=== PATIENT | female | born 1955 | race Caucasian/White ===

== ENCOUNTER 2016-07-13 10:31 | Inpatient (IN) | payer BC ==
[~2016-07-13] VITALS: Ht 160 cm; Wt 67.0 kg
[2016-07-13 10:32] VITALS: BP 142/75; PULSE 92; RESP 20; TEMP 98.9; O2SAT 98
[2016-07-13] MEDS ORDERED: SODIUM CHLOR 0.9% 1000 ML INJ 1,000 ML IV SCH (10:48)
[2016-07-13] MEDS ORDERED: TRAZ100T4 PO (10:50)
--- NOTE | 2016-07-13 10:55 | PD ---
HPI Chief Complaint: GI Complaint Time Seen by Provider: 10:41 Travel History International Travel<30 days: No Contact w/Intl Traveler<30days: No Traveled to known affect area: No History of Present Illness HPI 60-year-old female complains of low abdominal cramping and diarrhea. Patient was admitted to hospital outside the area on June 15 to June 17 for ruptured diverticulitis. Patient was treated with IV antibiotics conservatively without surgery. Patient was readmitted on June 19 to June 21 for persistent vomiting and dehydration. Repeat the CT of the abdomen and pelvis was reported to be normal. Patient was advised to continue with Cipro and Flagyl and antiemetic medication. Patient finished antibiotics on July 01. Patient has been doing well until 4 days ago when she started having mild low abdominal cramping and diarrhea. Patient denies any headache. Patient denies any chest pain or shortness of breath. Patient states the abdominal pain is mild intermittent cramping localized to lower abdomen. Patient denies any pain radiation. Patient states that she had fever a few days ago but not now. Patient denies any dysuria or frequency. Patient denies any vaginal discharge or bleeding. Patient denies any back pain. Patient denies any blood or mucus in the stool. PFSH Past Medical History Gastrointestinal Disorders: Yes (DIVERTICULITIS) Tetanus Vaccination: > 5 Years Influenza Vaccination: Yes ?: Not : 2 Para: 1 Miscarriage: 0 : 1 Past Surgical History Gynecologic Surgery: Yes (FULL) Hysterectomy: Yes (FULL) Social History Alcohol Use: Yes ("A COUPLE OF GLASSES OF WINE DAILY") Tobacco Use: No Substance Use: No Allergies-Medications (Allergen,Severity, Reaction): Coded Allergies: Codeine (Verified Allergy, Severe, 07/13/16) Reported Meds & Prescriptions Reported Meds & Active Scripts Active Reported Trazodone (Trazodone HCl) 100 Mg Tab 100 Mg PO HS Review of Systems General / Constitutional: No: Fever Eyes: No: Visual changes HENT: No: Headaches Cardiovascular: No: Chest Pain or Discomfort Respiratory: No: Shortness of Breath Gastrointestinal: Positive: Diarrhea, Abdominal Pain Genitourinary: No: Dysuria Musculoskeletal: No: Pain Skin: No Rash Neurologic: No: Weakness Psychiatric: No: Depression Endocrine: No: Polydipsia Hematologic/Lymphatic: No: Easy Bruising Physical Exam Narrative GENERAL: Well-nourished, well-developed patient. SKIN: Focused skin assessment warm/dry. HEAD: Normocephalic. EYES: No scleral icterus. No injection or drainage. NECK: Supple, trachea midline. No JVD or lymphadenopathy. CARDIOVASCULAR: Regular rate and rhythm without murmurs, gallops, or rubs. RESPIRATORY: Breath sounds equal bilaterally. No accessory muscle use. GASTROINTESTINAL: Abdomen soft, nondistended. Patient has mild tenderness on palpation lower abdomen. No rebound tenderness. No mass. MUSCULOSKELETAL: No cyanosis, or edema. BACK: Nontender without obvious deformity. No CVA tenderness. Neurologic exam normal. Data Data Last Documented VS Vital Signs Date Time Temp Pulse Resp B/P Pulse Ox O2 Delivery O2 Flow Rate FiO2 07/13/16 10:40 18 07/13/16 10:32 98.9 92 142/75 98 Room Air Orders Complete Blood Count With Diff (07/13/16 10:48) Comprehensive Metabolic Panel (07/13/16 10:48) Lipase (07/13/16 10:48) Prothrombin Time / Inr (Pt) (07/13/16 10:48) Act Partial Throm Time (Ptt) (07/13/16 10:48) Urinalysis - C+S If Indicated (07/13/16 10:48) Ct Abd/Pel W Iv Contrast(Rout) (07/13/16 10:48) Iv Access Insert/Monitor (07/13/16 10:48) Ecg Monitoring (07/13/16 10:48) Oximetry (07/13/16 10:48) Ondansetron Inj (Zofran Inj) (07/13/16 11:00) Sodium Chlor 0.9% 1000 Ml Inj (Ns 1000 M (07/13/16 10:48) Iohexol 350 Inj (Omnipaque 350 Inj) (07/13/16 12:12) Urine Culture (07/13/16 12:05) Labs Laboratory Tests Test 07/13/16 07/13/16 11:05 12:05 White Blood Count 7.6 TH/MM3 Red Blood Count 4.22 MIL/MM3 Hemoglobin 11.9 GM/DL Hematocrit 35.6 % Mean Corpuscular Volume 84.5 FL Mean Corpuscular Hemoglobin 28.2 PG Mean Corpuscular Hemoglobin 33.4 % Concent Red Cell Distribution Width 13.9 % Platelet Count 221 TH/MM3 Mean Platelet Volume 9.7 FL Neutrophils (%) (Auto) 66.9 % Lymphocytes (%) (Auto) 18.5 % Monocytes (%) (Auto) 13.3 % Eosinophils (%) (Auto) 1.1 % Basophils (%) (Auto) 0.2 % Neutrophils # (Auto) 5.1 TH/MM3 Lymphocytes # (Auto) 1.4 TH/MM3 Monocytes # (Auto) 1.0 TH/MM3 Eosinophils # (Auto) 0.1 TH/MM3 Basophils # (Auto) 0.0 TH/MM3 CBC Comment DIFF FINAL Differential Comment Prothrombin Time 10.0 SEC Prothromb Time International 0.9 RATIO Ratio Activated Partial 25.3 SEC Thromboplast Time Sodium Level 140 MEQ/L Potassium Level 3.8 MEQ/L Chloride Level 104 MEQ/L Carbon Dioxide Level 27.1 MEQ/L Anion Gap 9 MEQ/L Blood Urea Nitrogen 8 MG/DL Creatinine 0.63 MG/DL Estimat Glomerular Filtration 97 ML/MIN Rate Random Glucose 82 MG/DL Calcium Level 9.2 MG/DL Total Bilirubin 0.3 MG/DL Aspartate Amino Transf 12 U/L (AST/SGOT) Alanine Aminotransferase 22 U/L (ALT/SGPT) Alkaline Phosphatase 67 U/L Total Protein 7.7 GM/DL Albumin 3.6 GM/DL Lipase 187 U/L Urine Color YELLOW Urine Turbidity HAZY Urine pH 5.5 Urine Specific [place] 1.032 Urine Protein 30 mg/dL Urine Glucose (UA) NEG mg/dL Urine Ketones NEG mg/dL Urine Occult Blood NEG Urine Nitrite NEG Urine Bilirubin NEG Urine Urobilinogen LESS THAN 2.0 MG/DL Urine Leukocyte Esterase MOD Urine RBC 10 /hpf Urine WBC 50 /hpf Urine Squamous Epithelial 2 /hpf Cells Urine Calcium Oxalate Crystals RARE /hpf Urine Mucus MOD /lpf Microscopic Urinalysis Comment CULTURE INDICATED MDM Medical Decision Making Medical Screen Exam Complete: Yes Emergency Medical Condition: Yes Interpretation(s) 12:06 PM. CBC within normal limit. CMP within normal limit. 12:44 PM. Last Impressions Abdomen/Pelvis CT 07/13/16 1048 Signed Impressions: Service Date/Time: Wednesday, July 13, 2016 12:03 - CONCLUSION: 1. Abnormal sigmoid colon characteristic of mild acute diverticulitis in the mid sigmoid colon region. There is an area of extraluminal air and soft tissue extending superiorly from the mid sigmoid colon which represents either a large diverticulum, contained perforation, or possibly developing a fistula. No abscess or free air is present. 2. Innumerable cystic lesions are present throughout the liver with the largest cluster at the dome measuring up to 11 cm. Given the number of hepatic lesions present this presumably represents some variant of polycystic liver disease. Given the appearance of the lesion at the dome consider followup imaging to confirm stability or correlate with prior imaging studies. Jaison Plaza MD Differential Diagnosis Differential diagnosis including gastroenteritis, colitis, C. difficile colitis , viral syndrome. Narrative Course 60-year-old female with low abdominal pain and diarrhea. History of diverticulitis and recently was treated for that. Normal saline solution 1 25 cc an hour. Zofran 4 mg IV. Levaquin 750 mg IV. Flagyl 500 mg IV. Diagnosis Primary Impression: Acute diverticulitis Admitting Information Admitting Physician Requests: Admit Josiah Wilder MD Jul 13, 2016 10:54
[2016-07-13] MEDS ORDERED: ONDANSETRON HCL 4 MG/2 ML VIAL IVP ONE (11:00)
[2016-07-13 11:26] LABS: AUTOMATED NEUTROPHIL # 5.1 TH/MM3 (1.8-7.7); BASOPHIL % 0.2 % (0.0-2.0); EOSINOPHIL # 0.1 TH/MM3 (0-0.4); EOSINOPHIL % 1.1 % (0.0-4.0); HEMATOCRIT 35.6 % (35.0-46.0); HEMO FLAGS DIFF FINAL; LYMPH % 18.5 % (9.0-44.0); LYMPHOCYTE # 1.4 TH/MM3 (1.0-4.8); MEAN CELL VOLUME 84.5 FL (80.0-100.0); MEAN CORPUSCULAR HEMOGLOBIN 28.2 PG (27.0-34.0); MEAN CORPUSCULAR HGB CONC 33.4 % (32.0-36.0); MONO % 13.3 % (0.0-8.0); NEUT % 66.9 % (16.0-70.0); PLATELET COUNT 221 TH/MM3 (150-450); RED BLOOD COUNT 4.22 MIL/MM3 (4.00-5.30); RED CELL DISTRIBUTION WIDTH 13.9 % (11.6-17.2); WHITE BLOOD COUNT 7.6 TH/MM3 (4.0-11.0)
[2016-07-13 11:51] LABS: ALT (GPT) 22 U/L (10-53); ANION GAP 9 MEQ/L (5-15); APTT (PATIENT) 25.3 SEC (24.3-30.1); AST (GOT) 12 U/L (15-37); BICARBONATE 27.1 MEQ/L (21.0-32.0); BLOOD UREA NITROGEN 8 MG/DL (7-18); CHLORIDE 104 MEQ/L (98-107); GLOMERULAR FILTRATION RATE 97 ML/MIN (>89); INTERNATIONAL NORMALIZED RATIO 0.9 RATIO; POTASSIUM 3.8 MEQ/L (3.5-5.1); SODIUM (NA) 140 MEQ/L (136-145)
[2016-07-13 11:53] LABS: ALKALINE PHOSPHATASE 67 U/L (45-117); TOTAL BILIRUBIN ADULT 0.3 MG/DL (0.2-1.0)
[2016-07-13] MEDS ORDERED: IOHEXOL 350 MG/ML 10 ML VIAL (for RAD DIAG) IV ONE (12:12)
[2016-07-13 12:30] LABS: BLOOD, URINE NEG (NEG); CALCIUM OXALATE CRYSTALS,URINE RARE /hpf; COMMENT (UR) CULTURE INDICATED; CULTURE IF INDICATED CULTURE INDICATED; GLUCOSE,URINE NEG (NEG); KETONE, URINE NEG (NEG); MUCUS URINE MOD /lpf (OCC); NITRITE,URINE NEG (NEG); PH, URINE 5.5 (5.0-8.5); SQUAMOUS EPITHELIAL CELL URINE 2 /hpf (0-5); URINE COLOR YELLOW (YELLW/STRAW)
--- NOTE | 2016-07-13 12:37 | RADRPT ---
EXAM DATE/TIME: 07/13/2016 12:03 [facility] COMPARISON: No previous studies available for comparison. INDICATIONS : Lower abdominal pain. Diarrhea. IV CONTRAST: 90 cc Omnipaque 350 (iohexol) IV ORAL CONTRAST: No oral contrast ingested. RADIATION DOSE: 9.96 CTDIvol (mGy) MEDICAL HISTORY : Diverticulitis. SURGICAL HISTORY : Hysterectomy. ENCOUNTER: Initial ACUITY: 1 day PAIN SCALE: 4/10 LOCATION: Bilateral lower quadrant TECHNIQUE: Volumetric scanning of the abdomen and pelvis was performed. Using automated exposure control and ad justment of the mA and/or kV according to patient size, radiation dose was kept as low as reasonably achievable to obtain optimal diagnostic quality images. FINDINGS: LOWER LUNGS: The visualized lower lungs are clear. LIVER: There are innumerable low-density lesions throughout the liver with the largest conglomeration of low -density lesions at the liver dome measuring up to 11 cm. This area likely represents a cluster of ad jacent cystic lesions. Some of the lesions are too small to characterize. No definite enhancing mass is seen. There is no dilation of the biliary tree. No calcified gallstones. SPLEEN: Normal size without lesion. PANCREAS: Within normal limits. KIDNEYS: Normal in size and shape. There is no mass, stone or hydronephrosis. ADRENAL GLANDS: Within normal limits. VASCULAR: There is no aortic aneurysm. There is mild atherosclerotic disease. BOWEL/MESENTERY: The stomach and small bowel demonstrate no acute abnormality. There is sigmoid diverticulosis with mi ld wall thickening and pericolonic inflammation adjacent to the proximal and mid sigmoid colon. There is a thickwalled diverticulum versus contained perforation versus developing fistula extending super iorly from the mid sigmoid colon to the retroperitoneum. There is no free intraperitoneal air or flu id. ABDOMINAL WALL: Within normal limits. RETROPERITONEUM: There is no lymphadenopathy. BLADDER: Decompressed and not well evaluated. There may be mild mucosal hyperenhancement. REPRODUCTIVE: The uterus is absent. Clips are present in the pelvis. INGUINAL: There is no lymphadenopathy or hernia. MUSCULOSKELETAL: There are mild degenerative changes of the lumbar spine. CONCLUSION: 1. Abnormal sigmoid colon characteristic of mild acute diverticulitis in the mid sigmoid colon region . There is an area of extraluminal air and soft tissue extending superiorly from the mid sigmoid colo n which represents either a large diverticulum, contained perforation, or possibly developing a fistu la. No abscess or free air is present. 2. Innumerable cystic lesions are present throughout the liver with the largest cluster at the dome m easuring up to 11 cm. Given the number of hepatic lesions present this presumably represents some jacqueline iant of polycystic liver disease. Given the appearance of the lesion at the dome consider followup im aging to confirm stability or correlate with prior imaging studies. Jaison Plaza MD on July 13, 2016 at 12:29 Board Certified Radiologist. This report was verified electronically.
[2016-07-13 12:54] VITALS: BP 133/70; PULSE 78; RESP 16; O2SAT 98
[2016-07-13] MEDS ORDERED: metroNIDAZOLE 500 MG INJ 100 ML IV ONE (13:00)
[2016-07-13] MEDS ORDERED: LEVOFLOXACIN 750 MG PREMIX INJ 150 ML IV ONE (13:00)
[2016-07-13] MEDS ORDERED: PANTOPRAZOLE SODIUM 40 MG VIAL IV PUSH ONE (13:00)
[2016-07-13] MEDS: SODIUM CHLOR 0.9% 1000 ML INJ 1,000 ML IV SCH ×3 (13:07→20:57)
--- NOTE | 2016-07-13 13:49 | HHI.HP ---
[facility] Primary Care Physician Non-Staff Admission Diagnosis acute diverticulitis. Diagnoses: (1) Acute diverticulitis Diagnosis: Principal Chief Complaint: abdominal pain Travel History International Travel<30 Days: No Contact w/Intl Traveler <30 Da: No Traveled to Known Affected Are: No History of Present Illness patient is a 60 y/o female with history of diverticulitis presented to ER with abdominal pain. she says that she was recently discharged from the hospital after she was treated for acute diverticulitis. she finished her antibiotics about ten days ago. she says that she was doing fine till a few days ago when she started to have diarrhea. she's also complaining of hematuria. she denies any fever or chills but has mild lower abdominal pain. she was seen at urgent care and then she was referred to ER. she says that she had a colonoscopy about a year ago which showed diverticulosis. she denies any dysuria or frequency. Review of Systems Constitutional: DENIES: Fever, Weight loss, Chills, Night Sweats Eyes: DENIES: Blurred vision, Diplopia, Vision loss, Double Vision Ears, nose, mouth, throat: DENIES: Tinnitus, Vertigo, Throat pain, Epistaxis Respiratory: DENIES: Apneas, Cough, Snoring, Wheezing, Hemoptysis, Sputum production, Shortness of breath Cardiovascular: DENIES: Chest pain, Palpitations, Syncope, Dyspnea on Exertion , PND, Lower Extremity Edema, Orthopnea, Claudication Gastrointestinal: COMPLAINS OF: Abdominal pain, DENIES: Black stools, Bloody stools, Constipation, Diarrhea, Nausea, Vomiting, Difficulty Swallowing, Anorexia Genitourinary: COMPLAINS OF: Hematuria, DENIES: Urinary frequency, Urgency, Dysuria Musculoskeletal: DENIES: Joint pain, Muscle aches, Stiffness, Joint Swelling Integumentary: DENIES: Rash Neurologic: DENIES: Abnormal gait, Headache, Localized weakness, Paresthesias, Seizures, Speech Problems, Tremor, Poor Balance Psychiatric: DENIES: Anxiety, Confusion, Mood changes, Depression, Hallucinations, Agitation, Suicidal Ideation, Homicidal Ideation, Delusions Past Family Social History Past Medical History diverticulitis. Past Surgical History hysterectomy Reported Medications trazodone Allergies: Coded Allergies: Codeine (Verified Allergy, Severe, 07/13/16) Active Ordered Medications Current Medications Ondansetron HCl 4 mg 4 mg ONCE ONCE IVP Last administered on 07/13/16 11:07; Start 07/13/16 at 11:00; Stop 07/13/16 at 11:01; Status DC Sodium Chloride (NS 1000 ml Inj) 1,000 ml @ 1,000 mls/hr Q1H IV Last administered on 07/13/16 11:07; Start 07/13/16 at 10:48; Stop 07/13/16 at 11:47 ; Status DC Iohexol 95 ml 95 ml STK-MED ONCE IV Last administered on 07/13/16 12:12; Start 07/13/16 at 12:12; Stop 07/13/16 at 12:13; Status DC Levofloxacin/ Dextrose 150 ml @ 100 mls/hr ONCE ONCE IV Last administered on 07/13/16 13:06; Start 07/13/16 at 13:00; Stop 07/13/16 at 14:29 Metronidazole 100 ml @ 100 mls/hr ONCE ONCE IV ; Start 07/13/16 at 13:00; Stop 07/13/16 at 13:59 Sodium Chloride (NS 1000 ml Inj) 1,000 ml @ 125 mls/hr Q8H IV Last administered on 07/13/16 13:07; Start 07/13/16 at 13:00 Pantoprazole Sodium (Protonix Inj) 40 mg ONCE ONCE IV PUSH Last administered on 07/13/16 13:04; Start 07/13/16 at 13:00; Stop 07/13/16 at 13:01; Status DC Family History diverticulitis in mother. Social History no smoking- drinks occasionally. Physical Exam Vital Signs Vital Signs Date Time Temp Pulse Resp B/P Pulse Ox O2 Delivery O2 Flow Rate FiO2 07/13/16 12:54 78 16 133/70 98 Room Air 07/13/16 10:40 18 07/13/16 10:32 98.9 92 20 142/75 98 Room Air Physical Exam GENERAL: This is a well-nourished, well-developed patient, in no apparent distress. SKIN: No rashes, ecchymoses or lesions. Cool and dry. HEAD: Atraumatic. Normocephalic. No temporal or scalp tenderness. EYES: Pupils equal round and reactive. Extraocular motions intact. No scleral icterus. No injection or drainage. ENT: Nose without bleeding, purulent drainage or septal hematoma. Throat without erythema, tonsillar hypertrophy or exudate. Uvula midline. Airway patent. NECK: Trachea midline. No JVD or lymphadenopathy. Supple, nontender, no meningeal signs. CARDIOVASCULAR: Regular rate and rhythm without murmurs, gallops, or rubs. RESPIRATORY: Clear to auscultation. Breath sounds equal bilaterally. No wheezes , rales, or rhonchi. GASTROINTESTINAL: Abdomen soft, mild lower abdominal tenderness, nondistended. No hepato-splenomegaly, or palpable masses. No guarding. MUSCULOSKELETAL: Extremities without clubbing, cyanosis, or edema. No joint tenderness, effusion, or edema noted. No calf tenderness. Negative Homans sign bilaterally. NEUROLOGICAL: Awake and alert. Cranial nerves II through XII intact. Motor and sensory grossly within normal limits. Five out of 5 muscle strength in all muscle groups. Normal speech. Laboratory Laboratory Tests Test 07/13/16 07/13/16 11:05 12:05 White Blood Count 7.6 Red Blood Count 4.22 Hemoglobin 11.9 Hematocrit 35.6 Mean Corpuscular Volume 84.5 Mean Corpuscular Hemoglobin 28.2 Mean Corpuscular Hemoglobin 33.4 Concent Red Cell Distribution Width 13.9 Platelet Count 221 Mean Platelet Volume 9.7 Neutrophils (%) (Auto) 66.9 Lymphocytes (%) (Auto) 18.5 Monocytes (%) (Auto) 13.3 Eosinophils (%) (Auto) 1.1 Basophils (%) (Auto) 0.2 Neutrophils # (Auto) 5.1 Lymphocytes # (Auto) 1.4 Monocytes # (Auto) 1.0 Eosinophils # (Auto) 0.1 Basophils # (Auto) 0.0 CBC Comment DIFF FINAL Differential Comment Prothrombin Time 10.0 Prothromb Time International 0.9 Ratio Activated Partial 25.3 Thromboplast Time Sodium Level 140 Potassium Level 3.8 Chloride Level 104 Carbon Dioxide Level 27.1 Anion Gap 9 Blood Urea Nitrogen 8 Creatinine 0.63 Estimat Glomerular Filtration 97 Rate Random Glucose 82 Calcium Level 9.2 Total Bilirubin 0.3 Aspartate Amino Transf 12 (AST/SGOT) Alanine Aminotransferase 22 (ALT/SGPT) Alkaline Phosphatase 67 Total Protein 7.7 Albumin 3.6 Lipase 187 Urine Color YELLOW Urine Turbidity HAZY Urine pH 5.5 Urine Specific [place] 1.032 Urine Protein 30 Urine Glucose (UA) NEG Urine Ketones NEG Urine Occult Blood NEG Urine Nitrite NEG Urine Bilirubin NEG Urine Urobilinogen LESS THAN 2.0 Urine Leukocyte Esterase MOD Urine RBC 10 Urine WBC 50 Urine Squamous Epithelial 2 Cells Urine Calcium Oxalate Crystals RARE Urine Mucus MOD Microscopic Urinalysis Comment CULTURE INDICATED Date/Time Procedure Status Source Growth 07/13/16 12:05 Urine Culture Received Urine Random Urine Pending Result Diagram: 07/13/16 1105 07/13/16 1105 Imaging Last Impressions Abdomen/Pelvis CT 07/13/16 1048 Signed Impressions: Service Date/Time: Wednesday, July 13, 2016 12:03 - CONCLUSION: 1. Abnormal sigmoid colon characteristic of mild acute diverticulitis in the mid sigmoid colon region. There is an area of extraluminal air and soft tissue extending superiorly from the mid sigmoid colon which represents either a large diverticulum, contained perforation, or possibly developing a fistula. No abscess or free air is present. 2. Innumerable cystic lesions are present throughout the liver with the largest cluster at the dome measuring up to 11 cm. Given the number of hepatic lesions present this presumably represents some variant of polycystic liver disease. Given the appearance of the lesion at the dome consider followup imaging to confirm stability or correlate with prior imaging studies. Jaison Plaza MD Assessment and Plan Assessment and Plan A/P - recurrent diverticulitis CT of the abdomen with possible small perforation vs developing fistula. NPO for now and continue IV fluid and pain control- continue with IV antibiotics- will consult surgery. -abnormal UA- possible UTI; on IV antibiotic- follow the culture -liver cysts- f/u as outpatient -DVT prophylaxis with SCD's Discussed Condition With ER physician and the patient. Physician Certification 2 Midnight Certification Type: Admission for Inpatient Services Order for Inpatient Services The services are ordered in accordance with Medicare regulations or non- Medicare payer requirements, as applicable. In the case of services not specified as inpatient-only, they are appropriately provided as inpatient services in accordance with the 2-midnight benchmark. Estimated LOS (days): 2 days is the estimated time the patient will need to remain in the hospital, assuming treatment plan goals are met and no additional complications. Post-Hospital Plan: Home Gem Carver MD Jul 13, 2016 13:49
[2016-07-13 14:21] VITALS: BP 124/82; PULSE 76; RESP 16; O2SAT 100
[2016-07-13] MEDS: ACETAMINOPHEN/HYDROcodone 325 MG/5 MG TAB PO PRN ×2 (14:59→20:58)
[2016-07-13 16:17] VITALS: BP 119/76; PULSE 79; RESP 18; TEMP 98.1; O2SAT 96
--- NOTE | 2016-07-13 19:36 | MB ---
cc: YANCY KENNEDY M.D. DATE OF CONSULTATION: 07/13/2016 REASON FOR CONSULTATION: Recurrent diverticulitis. HISTORY OF PRESENT ILLNESS The patient is a 60-year-old female with a history of diverticulitis in which she had an episode in the fall of last year, then again in [place] 11 days ago, and then in [place] approximately 5 days ago. Both of them were recent episodes, were managed with bowel rest, IV fluids as well as antibiotics. The last episode was managed with Cipro and Flagyl in which the patient was sent home. The patient had increase in diarrhea and pain, beginning on Tuesday and this continued and became more intense. The patient reports having a colonoscopy approximately 1 year ago which showed diverticulosis in the spring. REVIEW OF SYSTEMS The patient denies any weight loss, chills or night sweats. Eyes: She denies blurred vision, diplopia or double vision. Respiratory: Denies cough, shortness of breath or hemoptysis. Cardiovascular: Denies chest pain, palpitations. GI: She complains of abdominal pain. She denies melenic stools, bloody stools, emesis, nausea. She did report diarrhea. : Denies urinary frequency or dysuria but reports hematuria. Musculoskeletal: She denies joint pain or muscle pain. Integumentary: Denies a rash. Neurologic: Denies unsteady gait, weakness, paresthesias, seizures. Psychiatric: She denies anxiety, confusion, mood changes, depression or hallucinations. FAMILY HISTORY: Significant for laparoscopic hysterectomy. MEDICATIONS: Trazodone ALLERGIES CODEINE. PHYSICAL EXAMINATION: Reveals a female in no acute distress. VITAL SIGNS: BP 119/76, pulse 79, respirations 18, temperature 98.1, 96% sat on room air. HEENT: Sclerae anicteric. Pupils reactive. Chest is clear to auscultation. Cardiac exam reveals regular rate and rhythm. Abdomen: Soft with no hernias noted. There are small trocar sites from her laparoscopic hysterectomy. The patient has left lower quadrant tenderness to deep palpation without guarding or rebound. Pulses are present. Neurologic: Nonfocal. LABORATORY VALUES: WBCs are 7.6, platelet count 221,000. BUN and creatinine are normal at 8 and 0.6. IMAGING STUDIES: Abnormal sigmoid colon with mild acute diverticulitis in the midsigmoid with a area of some extraluminal air and soft tissue extending superiorly from the mid sigmoid which may represent either a large diverticulum, contained perforation or developing fistula. There was no abscess or free air noted. ASSESSMENT: Recurrent diverticulitis with third episode in 11 days. PLAN: The patient is from [place], [place], and would sincerely like to return home if possible. I discussed with the patient that we will have her undergo bowel rest today and then have gradual increase in her diet with clear liquids tomorrow and a low residue diet on . She would be able to be discharged on Tuesday and I have recommended that she go directly home if she is released without surgery. I have also instructed her to contact her family medicine physician and/or wet primer powder blender to arrange for a surgeon to see her immediately upon arrival. Failing this, she may require surgery at this institution and if so, I discussed with her possibly having her undergo bowel prep and potentially performing a single staged procedure, although a colostomy would be more likely the outcome. She vocalizes clear understanding of this and wishes to try to manage this nonoperatively if possible. MD ANISH Seymour/CARA /7:12 PM /7:20 PM
[2016-07-13 20:41] VITALS: BP 141/84; PULSE 88; RESP 18; TEMP 98.8; O2SAT 95
[2016-07-13] MEDS: traZODone HCL 100 MG TAB PO SCH (20:57)
[2016-07-13] MEDS: ONDANSETRON HCL 4 MG/2 ML VIAL IV PUSH PRN (23:39)
[2016-07-13] MEDS: metroNIDAZOLE 500 MG INJ 100 ML IV SCH (23:39)
[2016-07-13 23:44] VITALS: BP 106/65; PULSE 88; RESP 16; TEMP 98.7; O2SAT 98
[2016-07-14] MEDS: SODIUM CHLOR 0.9% 1000 ML INJ 1,000 ML IV SCH ×7 (01:01→21:42)
[2016-07-14] MEDS: ACETAMINOPHEN/HYDROcodone 325 MG/5 MG TAB PO PRN (03:29)
[2016-07-14 04:21] VITALS: BP 125/70; PULSE 84; RESP 18; TEMP 99; O2SAT 97
[2016-07-14] MEDS: metroNIDAZOLE 500 MG INJ 100 ML IV SCH ×3 (06:13→21:42)
[2016-07-14 07:20] VITALS: BP 123/58; PULSE 88; RESP 17; TEMP 97.7; O2SAT 95
[2016-07-14] MEDS ORDERED: PNEUMOCOCCAL POLYVALENT INJ 25 MCG/0.5 ML SYR IM ONE (10:00)
[2016-07-14] MEDS ORDERED: INFLUENZA VIRUS VACCINE (QUADRIVALENT) 0.5 ML SYR IM ONE (10:00)
[2016-07-14] MEDS: ACETAMINOPHEN 325 MG TAB PO PRN ×3 (10:04→21:43)
[2016-07-14] MEDS ORDERED: ACETAMINOPHEN 325 MG TAB PO PRN (10:15)
--- NOTE | 2016-07-14 10:24 | HHI.PR ---
Subjective Remarks resting comfortably with no distress. denies abdominal pain, nausea or vomiting. no fever. no urinary complaints. Objective Vitals Vital Signs Date Time Temp Pulse Resp B/P Pulse Ox O2 Delivery O2 Flow Rate FiO2 07/14/16 07:20 97.7 88 17 123/58 95 07/14/16 04:21 99.0 84 18 125/70 97 07/13/16 23:44 98.7 88 16 106/65 98 07/13/16 20:41 98.8 88 18 141/84 95 07/13/16 16:17 98.1 79 18 119/76 96 07/13/16 14:21 76 16 124/82 100 Room Air 07/13/16 12:54 78 16 133/70 98 Room Air 07/13/16 10:40 18 07/13/16 10:32 98.9 92 20 142/75 98 Room Air I/O 07/13/16 07/13/16 07/13/16 07/14/16 07/14/16 07/14/16 07:00 15:00 23:00 07:00 15:00 23:00 Intake Total 880 ml Balance 880 ml Intake IV Total 880 ml # Voids 2 # Bowel Movements 0 Result Diagram: 07/13/16 1105 07/13/16 1105 Imaging Last Impressions Abdomen/Pelvis CT 07/13/16 1048 Signed Impressions: Service Date/Time: Wednesday, July 13, 2016 12:03 - CONCLUSION: 1. Abnormal sigmoid colon characteristic of mild acute diverticulitis in the mid sigmoid colon region. There is an area of extraluminal air and soft tissue extending superiorly from the mid sigmoid colon which represents either a large diverticulum, contained perforation, or possibly developing a fistula. No abscess or free air is present. 2. Innumerable cystic lesions are present throughout the liver with the largest cluster at the dome measuring up to 11 cm. Given the number of hepatic lesions present this presumably represents some variant of polycystic liver disease. Given the appearance of the lesion at the dome consider followup imaging to confirm stability or correlate with prior imaging studies. Jaison Plaza MD Objective Remarks GENERAL: This is a well-nourished, well-developed patient, in no apparent distress. CARDIOVASCULAR: Regular rate and regular rhythm without murmurs, gallops, or rubs. RESPIRATORY: Clear to auscultation. Breath sounds equal bilaterally. No wheezes , rales, or rhonchi. GASTROINTESTINAL: Abdomen soft, non-tender, nondistended. Normal, active bowel sounds MUSCULOSKELETAL: Extremities without clubbing, cyanosis, or edema. NEURO: Alert & Oriented x4 to person, place, time, situation. Moves all ext x4 Procedures none Medications and IVs Current Medications Ondansetron HCl 4 mg 4 mg ONCE ONCE IVP Last administered on 07/13/16 11:07; Start 07/13/16 at 11:00; Stop 07/13/16 at 11:01; Status DC Sodium Chloride (NS 1000 ml Inj) 1,000 ml @ 1,000 mls/hr Q1H IV Last administered on 07/13/16 11:07; Start 07/13/16 at 10:48; Stop 07/13/16 at 11:47 ; Status DC Iohexol 95 ml 95 ml STK-MED ONCE IV Last administered on 07/13/16 12:12; Start 07/13/16 at 12:12; Stop 07/13/16 at 12:13; Status DC Levofloxacin/ Dextrose 150 ml @ 100 mls/hr ONCE ONCE IV Last administered on 07/13/16 13:06; Start 07/13/16 at 13:00; Stop 07/13/16 at 14:29; Status DC Metronidazole 100 ml @ 100 mls/hr ONCE ONCE IV Last administered on 14:58; Start 07/13/16 at 13:00; Stop 07/13/16 at 13:59; Status DC Sodium Chloride (NS 1000 ml Inj) 1,000 ml @ 125 mls/hr Q8H IV Last administered on 07/14/16 03:30; Start 07/13/16 at 13:00 Pantoprazole Sodium 40 mg 40 mg ONCE ONCE IV PUSH Last administered on 13:04; Start 07/13/16 at 13:00; Stop 07/13/16 at 13:01; Status DC Sodium Chloride (NS 1000 ml Inj) 1,000 ml @ 100 mls/hr Q10H IV Last administered on 07/13/16 14:58; Start 07/13/16 at 13:30 Ondansetron HCl (Zofran Inj) 4 mg Q8H PRN IV PUSH NAUSEA Last administered on 23:39; Start 07/13/16 at 13:30 Acetaminophen/ Hydrocodone Bitart 1 tab 1 tab Q4H PRN PO PAIN > 4 Last administered on 07/14/16 03:29; Start 07/13/16 at 13:30 Levofloxacin/ Dextrose 100 ml @ 100 mls/hr Q24H IV ; Start 07/14/16 at 13:00 Metronidazole (Flagyl 500 Mg Inj) 100 ml @ 100 mls/hr Q8H IV Last administered on 07/14/16 06:13; Start 07/13/16 at 22:00 Acetaminophen (Tylenol) 650 mg Q4H PRN PO FEVER/ PAIN < 4 Last administered on 07/14/16 10:04; Start 07/13/16 at 13:30 Trazodone HCl (Desyrel) 100 mg HS PO Last administered on 07/13/16 20:57; Start 07/13/16 at 21:00 Pneumococcal Polyvalent Vaccine (Pneumovax-23 Inj) 25 mcg ONCE ONCE IM ; Start 07/14/16 at 10:00; Stop 07/14/16 at 10:01; Status DC Influenza Virus Vaccine (Flu (Quadrivalent) Vaccine Inj) 0.5 ml ONCE ONCE IM ; Start 07/14/16 at 10:00; Stop 07/14/16 at 10:01; Status DC Acetaminophen (Tylenol) 650 mg Q4H PRN PO headache ; Start 07/14/16 at 10:15; Status UNV A/P Assessment and Plan - recurrent diverticulitis CT of the abdomen with possible small perforation vs developing fistula. started on clear liquid- continue IV fluid and pain control- continue with IV antibiotics- surgery consult appreciated and recommended outpatient follow-up. -abnormal UA- possible UTI; on IV antibiotic- follow the culture -liver cysts- f/u as outpatient -DVT prophylaxis with SCD's Gem Carver MD Jul 14, 2016 10:24
--- NOTE | 2016-07-14 10:42 | HHI.PR ---
Subjective Subjective Notes Resting in bed C/o headache Abdominal pain much improved from yesterday Objective Vitals/I&O Vital Signs Date Time Temp Pulse Resp B/P Pulse Ox O2 Delivery O2 Flow Rate FiO2 07/14/16 07:20 97.7 88 17 123/58 95 07/13/16 14:21 Room Air Labs Laboratory Tests Test 07/13/16 07/13/16 11:05 12:05 White Blood Count 7.6 Red Blood Count 4.22 Hemoglobin 11.9 Hematocrit 35.6 Mean Corpuscular Volume 84.5 Mean Corpuscular Hemoglobin 28.2 Mean Corpuscular Hemoglobin 33.4 Concent Red Cell Distribution Width 13.9 Platelet Count 221 Mean Platelet Volume 9.7 Neutrophils (%) (Auto) 66.9 Lymphocytes (%) (Auto) 18.5 Monocytes (%) (Auto) 13.3 Eosinophils (%) (Auto) 1.1 Basophils (%) (Auto) 0.2 Neutrophils # (Auto) 5.1 Lymphocytes # (Auto) 1.4 Monocytes # (Auto) 1.0 Eosinophils # (Auto) 0.1 Basophils # (Auto) 0.0 CBC Comment DIFF FINAL Differential Comment Prothrombin Time 10.0 Prothromb Time International 0.9 Ratio Activated Partial 25.3 Thromboplast Time Sodium Level 140 Potassium Level 3.8 Chloride Level 104 Carbon Dioxide Level 27.1 Anion Gap 9 Blood Urea Nitrogen 8 Creatinine 0.63 Estimat Glomerular Filtration 97 Rate Random Glucose 82 Calcium Level 9.2 Total Bilirubin 0.3 Aspartate Amino Transf 12 (AST/SGOT) Alanine Aminotransferase 22 (ALT/SGPT) Alkaline Phosphatase 67 Total Protein 7.7 Albumin 3.6 Lipase 187 Urine Color YELLOW Urine Turbidity HAZY Urine pH 5.5 Urine Specific Daphne 1.032 Urine Protein 30 Urine Glucose (UA) NEG Urine Ketones NEG Urine Occult Blood NEG Urine Nitrite NEG Urine Bilirubin NEG Urine Urobilinogen LESS THAN 2.0 Urine Leukocyte Esterase MOD Urine RBC 10 Urine WBC 50 Urine Squamous Epithelial 2 Cells Urine Calcium Oxalate Crystals RARE Urine Mucus MOD Microscopic Urinalysis Comment CULTURE INDICATED Date/Time Procedure Status Source Growth 07/13/16 12:05 Urine Culture Received Urine Random Urine Pending Cardiovascular: Regular Lungs: Clear Abdomen: Other (soft; non tender with palpation ) Extremities: No edema A/P Assessment and Plan 60 year old female with recurrent acute diverticulitis -Continue Levaquin/Flagyl -Pain control -Okay to start sips of clears -Will plan to advance diet in AM if tolerates -Labs in AM -Advised patient to contact her physicians [place] for appointments as soon as she is back Attending Note - Dr. Peacock Abdomen benign; less pain/discomfort Advance diet The exam, history, and the medical decision-making described in the above note were completed with the assistance of the mid-level provider. I reviewed and agree with the findings presented. I attest that I had a [id number] encounter with the patient on the same day, and personally performed and documented my assessment and findings in the medical record. Dottie Brown Jul 14, 2016 10:42 Guanako Peacock MD Jul 15, 2016 15:10
[2016-07-14 11:25] VITALS: BP 123/72; PULSE 82; RESP 20; TEMP 98.3; O2SAT 95
[2016-07-14] MEDS ORDERED: LEVOFLOXACIN 500 MG PREMIX INJ 100 ML IV SCH (13:00)
[2016-07-14] MEDS: ONDANSETRON HCL 4 MG/2 ML VIAL IV PUSH PRN ×2 (14:35→18:50)
[2016-07-14 15:30] VITALS: BP 141/79; PULSE 90; RESP 19; TEMP 98.9; O2SAT 97
[2016-07-14 20:30] VITALS: BP 126/67; PULSE 84; RESP 16; TEMP 99; O2SAT 97
[2016-07-14] MEDS: traZODone HCL 100 MG TAB PO SCH (21:42)
[2016-07-15] VITALS: BP 120/71; PULSE 80; RESP 17; TEMP 98.8; O2SAT 98
[2016-07-15] MEDS: metroNIDAZOLE 500 MG INJ 100 ML IV SCH ×3 (02:03→20:26)
[2016-07-15] MEDS: SODIUM CHLOR 0.9% 1000 ML INJ 1,000 ML IV SCH ×6 (02:04→20:26)
[2016-07-15] MEDS: ONDANSETRON HCL 4 MG/2 ML VIAL IV PUSH PRN ×3 (02:04→20:28)
[2016-07-15 04:45] VITALS: BP 123/74; PULSE 79; RESP 16; TEMP 97.6; O2SAT 96
[2016-07-15] MEDS: ACETAMINOPHEN 325 MG TAB PO PRN ×4 (05:19→20:26)
[2016-07-15 07:47] VITALS: BP 135/73; PULSE 84; RESP 20; TEMP 99.1; O2SAT 95
[2016-07-15 08:02] LABS: AUTOMATED NEUTROPHIL # 2.9 TH/MM3 (1.8-7.7); BASOPHIL % 0.3 % (0.0-2.0); EOSINOPHIL # 0.1 TH/MM3 (0-0.4); EOSINOPHIL % 1.7 % (0.0-4.0); HEMATOCRIT 31.2 % (35.0-46.0); HEMO FLAGS DIFF FINAL; LYMPH % 22.3 % (9.0-44.0); LYMPHOCYTE # 1.1 TH/MM3 (1.0-4.8); MEAN CELL VOLUME 85.6 FL (80.0-100.0); MEAN CORPUSCULAR HEMOGLOBIN 27.4 PG (27.0-34.0); MONO % 14.9 % (0.0-8.0); NEUT % 60.8 % (16.0-70.0); PLATELET COUNT 160 TH/MM3 (150-450); RED BLOOD COUNT 3.64 MIL/MM3 (4.00-5.30); RED CELL DISTRIBUTION WIDTH 13.2 % (11.6-17.2); WHITE BLOOD COUNT 4.8 TH/MM3 (4.0-11.0)
[2016-07-15 08:29] LABS: POTASSIUM 3.4 MEQ/L (3.5-5.1)
--- NOTE | 2016-07-15 09:20 | HHI.PR ---
Subjective Remarks resting comfortably with no distress. minimal to mild abdominal pain. no nausea or vomiting. afebrile. Objective Vitals Vital Signs Date Time Temp Pulse Resp B/P Pulse Ox O2 Delivery O2 Flow Rate FiO2 07/15/16 07:47 99.1 84 20 135/73 95 07/15/16 06:25 16 07/15/16 04:45 97.6 79 16 123/74 96 07/15/16 00:00 98.8 80 17 120/71 98 07/14/16 20:54 16 07/14/16 20:30 99.0 84 16 126/67 97 07/14/16 15:30 98.9 90 19 141/79 97 07/14/16 11:25 98.3 82 20 123/72 95 I/O 07/14/16 07/14/16 07/14/16 07/15/16 07/15/16 07/15/16 07:00 15:00 23:00 07:00 15:00 23:00 Intake Total 880 ml 600 ml 600 ml Balance 880 ml 600 ml 600 ml Intake Oral 600 ml 600 ml IV Total 880 ml # Voids 2 5 1 2 # Bowel Movements 0 0 0 0 Result Diagram: 07/15/16 0725 07/15/16 0725 Imaging Last Impressions Abdomen/Pelvis CT 07/13/16 1048 Signed Impressions: Service Date/Time: Wednesday, July 13, 2016 12:03 - CONCLUSION: 1. Abnormal sigmoid colon characteristic of mild acute diverticulitis in the mid sigmoid colon region. There is an area of extraluminal air and soft tissue extending superiorly from the mid sigmoid colon which represents either a large diverticulum, contained perforation, or possibly developing a fistula. No abscess or free air is present. 2. Innumerable cystic lesions are present throughout the liver with the largest cluster at the dome measuring up to 11 cm. Given the number of hepatic lesions present this presumably represents some variant of polycystic liver disease. Given the appearance of the lesion at the dome consider followup imaging to confirm stability or correlate with prior imaging studies. Jaison Plaza MD Objective Remarks GENERAL: This is a well-nourished, well-developed patient, in no apparent distress. CARDIOVASCULAR: Regular rate and regular rhythm without murmurs, gallops, or rubs. RESPIRATORY: Clear to auscultation. Breath sounds equal bilaterally. No wheezes , rales, or rhonchi. GASTROINTESTINAL: Abdomen soft, non-tender, nondistended. Normal, active bowel sounds MUSCULOSKELETAL: Extremities without clubbing, cyanosis, or edema. NEURO: Alert & Oriented x4 to person, place, time, situation. Moves all ext x4 Procedures none Medications and IVs Current Medications Ondansetron HCl 4 mg 4 mg ONCE ONCE IVP Last administered on 07/13/16 11:07; Start 07/13/16 at 11:00; Stop 07/13/16 at 11:01; Status DC Sodium Chloride (NS 1000 ml Inj) 1,000 ml @ 1,000 mls/hr Q1H IV Last administered on 07/13/16 11:07; Start 07/13/16 at 10:48; Stop 07/13/16 at 11:47 ; Status DC Iohexol 95 ml 95 ml STK-MED ONCE IV Last administered on 07/13/16 12:12; Start 07/13/16 at 12:12; Stop 07/13/16 at 12:13; Status DC Levofloxacin/ Dextrose 150 ml @ 100 mls/hr ONCE ONCE IV Last administered on 07/13/16 13:06; Start 07/13/16 at 13:00; Stop 07/13/16 at 14:29; Status DC Metronidazole 100 ml @ 100 mls/hr ONCE ONCE IV Last administered on 14:58; Start 07/13/16 at 13:00; Stop 07/13/16 at 13:59; Status DC Sodium Chloride (NS 1000 ml Inj) 1,000 ml @ 125 mls/hr Q8H IV Last administered on 07/15/16 02:04; Start 07/13/16 at 13:00 Pantoprazole Sodium 40 mg 40 mg ONCE ONCE IV PUSH Last administered on 13:04; Start 07/13/16 at 13:00; Stop 07/13/16 at 13:01; Status DC Sodium Chloride (NS 1000 ml Inj) 1,000 ml @ 100 mls/hr Q10H IV Last administered on 07/13/16 14:58; Start 07/13/16 at 13:30 Ondansetron HCl (Zofran Inj) 4 mg Q8H PRN IV PUSH NAUSEA Last administered on 02:04; Start 07/13/16 at 13:30 Acetaminophen/ Hydrocodone Bitart 1 tab 1 tab Q4H PRN PO PAIN > 4 Last administered on 07/14/16 03:29; Start 07/13/16 at 13:30 Levofloxacin/ Dextrose 100 ml @ 100 mls/hr Q24H IV Last administered on 14:32; Start 07/14/16 at 13:00 Metronidazole (Flagyl 500 Mg Inj) 100 ml @ 100 mls/hr Q8H IV Last administered on 07/15/16 02:03; Start 07/13/16 at 22:00 Acetaminophen (Tylenol) 650 mg Q4H PRN PO FEVER/ PAIN < 4 Last administered on 07/15/16 05:19; Start 07/13/16 at 13:30 Trazodone HCl (Desyrel) 100 mg HS PO Last administered on 07/14/16 21:42; Start 07/13/16 at 21:00 Pneumococcal Polyvalent Vaccine (Pneumovax-23 Inj) 25 mcg ONCE ONCE IM Last administered on 07/14/16 14:48; Start 07/14/16 at 10:00; Stop 07/14/16 at 10:01 ; Status DC Influenza Virus Vaccine (Flu (Quadrivalent) Vaccine Inj) 0.5 ml ONCE ONCE IM Last administered on 07/14/16 14:38; Start 07/14/16 at 10:00; Stop 07/14/16 at 10:01; Status DC Acetaminophen (Tylenol) 650 mg Q4H PRN PO headache ; Start 07/14/16 at 10:15 A/P Assessment and Plan - recurrent diverticulitis CT of the abdomen with possible small perforation vs developing fistula. will advance the diet as tolerated.- continue IV fluid and pain control- continue with IV antibiotics- surgery consult appreciated and recommended outpatient follow-up. -UTI with e-coli; continue antibiotic -mild hypokalemia; will replace. -liver cysts- f/u as outpatient -DVT prophylaxis with SCD's Discharge Planning possible dc home in am if stable. Gem Carver MD Jul 15, 2016 09:19
[2016-07-15] MEDS ORDERED: AUGM875T PO ×2 (09:21→09:22)
[2016-07-15] MEDS ORDERED: POTASSIUM CHLORIDE 20 MEQ CONTROLLED RELEASE TAB PO ONE (09:30)
[2016-07-15] MEDS ORDERED: cefTRIAXone INJ 1,000 MG in SODIUM CHLORIDE 0.9% INJ 100 ML IV SCH (11:00)
[2016-07-15 12:02] VITALS: BP 152/79; PULSE 83; RESP 20; TEMP 97.8; O2SAT 97
--- NOTE | 2016-07-15 13:26 | HHI.PR ---
Subjective Subjective Notes Ambulating in hallways Feels much better today Objective Vitals/I&O Vital Signs Date Time Temp Pulse Resp B/P Pulse Ox O2 Delivery O2 Flow Rate FiO2 07/15/16 12:02 97.8 83 20 152/79 97 07/13/16 14:21 Room Air Labs Laboratory Tests Test 07/15/16 07:25 White Blood Count 4.8 Red Blood Count 3.64 Hemoglobin 10.0 Hematocrit 31.2 Mean Corpuscular Volume 85.6 Mean Corpuscular Hemoglobin 27.4 Mean Corpuscular Hemoglobin 32.0 Concent Red Cell Distribution Width 13.2 Platelet Count 160 Mean Platelet Volume 9.4 Neutrophils (%) (Auto) 60.8 Lymphocytes (%) (Auto) 22.3 Monocytes (%) (Auto) 14.9 Eosinophils (%) (Auto) 1.7 Basophils (%) (Auto) 0.3 Neutrophils # (Auto) 2.9 Lymphocytes # (Auto) 1.1 Monocytes # (Auto) 0.7 Eosinophils # (Auto) 0.1 Basophils # (Auto) 0.0 CBC Comment DIFF FINAL Differential Comment Sodium Level 143 Potassium Level 3.4 Chloride Level 109 Carbon Dioxide Level 27.0 Anion Gap 7 Blood Urea Nitrogen 3 Creatinine 0.46 Estimat Glomerular Filtration 140 Rate Random Glucose 89 Calcium Level 8.1 Date/Time Procedure Status Source Growth 07/13/16 12:05 Urine Culture - Final Complete Urine Random Urine Escherichia Coli Cardiovascular: Regular Lungs: Clear Abdomen: Non-distended, Non-tender Extremities: No edema A/P Assessment and Plan 60 year old female with recurrent acute diverticulitis -Continue Levaquin/Flagyl---plan to transition to PO antibiotics if tolerated low residue dit -Pain control -Start low residue diet -CT scan on disk -Advised patient to contact her physicians in [place] for appointments as soon as she is back -Plan to DC tomorrow if tolerates PO diet Attending Note - Dr. Peacock Abdomen soft; tolerating liquids Discussed management with pt. and . They agree to see PCP upon return home this next week and see GI doctor CL Get med recs from hospital to take home. Likely D/C home tomorrow as above. The exam, history, and the medical decision-making described in the above note were completed with the assistance of the mid-level provider. I reviewed and agree with the findings presented. I attest that I had a [id number] encounter with the patient on the same day, and personally performed and documented my assessment and findings in the medical record. Dottie Brown Jul 15, 2016 13:26 Guanako Peacock MD Jul 16, 2016 16:34
[2016-07-15 16:16] VITALS: BP 139/82; PULSE 79; RESP 20; TEMP 98.8; O2SAT 97
[2016-07-15] MEDS: traZODone HCL 100 MG TAB PO SCH (20:26)
[2016-07-15 21:15] VITALS: BP 116/77; PULSE 84; RESP 16; TEMP 98.6; O2SAT 96
[2016-07-16] VITALS: BP 118/75; PULSE 80; RESP 17; TEMP 98.1; O2SAT 97
[2016-07-16 04:30] VITALS: BP 109/66; PULSE 78; RESP 16; TEMP 98.5; O2SAT 96
[2016-07-16] MEDS: SODIUM CHLOR 0.9% 1000 ML INJ 1,000 ML IV SCH (05:29)
[2016-07-16] MEDS: metroNIDAZOLE 500 MG INJ 100 ML IV SCH (05:30)
[2016-07-16] MEDS ORDERED: ZOFR4TAB PO (07:07)
[2016-07-16] MEDS: ONDANSETRON HCL 4 MG/2 ML VIAL IV PUSH PRN (07:45)
[2016-07-16 08:40] VITALS: BP 137/75; PULSE 82; RESP 20; TEMP 98.1; O2SAT 97
[2016-07-16] MEDS ORDERED: CIPROFLOXACIN 500 MG TAB PO SCH (09:00)
--- NOTE | 2016-07-16 09:18 | HHI.PR ---
Subjective Subjective Notes Resting in bed Slept well Ready to go back to [place] Objective Vitals/I&O Vital Signs Date Time Temp Pulse Resp B/P Pulse Ox O2 Delivery O2 Flow Rate FiO2 07/16/16 08:40 98.1 82 20 137/75 97 07/16/16 04:00 Room Air Labs Date/Time Procedure Status Source Growth 07/13/16 12:05 Urine Culture - Final Complete Urine Random Urine Escherichia Coli Cardiovascular: Regular Lungs: Clear Abdomen: Non-distended, Non-tender Extremities: No edema A/P Assessment and Plan 60 year old female with recurrent acute diverticulitis -Transition to PO antibiotics -Pain control -Tolerating low residue diet -CT scan on disk for DC -Patient has appointment with PCP and GI next week -GS clear for DC -Antibiotics and Zofran rx on chart Attending Note - Dr. Peacock Abdomen soft, minimal pain On diet D/C The exam, history, and the medical decision-making described in the above note were completed with the assistance of the mid-level provider. I reviewed and agree with the findings presented. I attest that I had a [id number] encounter with the patient on the same day, and personally performed and documented my assessment and findings in the medical record. Dottie Brown Jul 16, 2016 09:18 Guanako Peacock MD Jul 16, 2016 16:31
--- NOTE | 2016-07-16 11:34 | HHI.DCPOC ---
Discharge Care Plan Diagnosis: (1) Acute diverticulitis Your Health Problems Are: Inflammation Goals to Promote Your Health * To prevent worsening of your condition and complications * To maintain your health at the optimal level Directions to Meet Your Goals Take your medications as prescribed Follow your dietary instruction Follow activity as directed Keep your appointments as scheduled Take your immunizations and boosters as scheduled If your symptoms worsen call your PCP, if no PCP go to Urgent Care Center or Emergency Room Smoking is Dangerous to Your Health. Avoid second hand smoke Call the 24-hour hour crisis hotline for domestic abuse at Gem Carver MD Jul 16, 2016 11:34
--- NOTE | 2016-07-16 11:34 | HHI.PR ---
Subjective Remarks in no distress. no abdominal pain. no fever. wants to go home today. Objective Vitals Vital Signs Date Time Temp Pulse Resp B/P Pulse Ox O2 Delivery O2 Flow Rate FiO2 07/16/16 08:40 98.1 82 20 137/75 97 07/16/16 07:45 Room Air 07/16/16 04:30 98.5 78 16 109/66 96 07/16/16 04:00 Room Air 07/16/16 00:00 98.1 80 17 118/75 97 07/16/16 00:00 Room Air 07/15/16 21:15 98.6 84 16 116/77 96 07/15/16 20:00 Room Air 07/15/16 16:45 18 07/15/16 16:16 98.8 79 20 139/82 97 07/15/16 12:02 97.8 83 20 152/79 97 I/O 07/15/16 07/15/16 07/15/16 07/16/16 07/16/16 07/16/16 07:00 15:00 23:00 07:00 15:00 23:00 Intake Total 600 ml 240 ml 3394 ml 2697 ml Balance 600 ml 240 ml 3394 ml 2697 ml Intake Oral 600 ml 240 ml 800 ml 1800 ml IV Total 2594 ml 897 ml # Voids 2 4 1 12 # Bowel Movements 0 1 0 0 Result Diagram: 07/15/16 0725 07/15/16 0725 Imaging Last Impressions Abdomen/Pelvis CT 07/13/16 1048 Signed Impressions: Service Date/Time: Wednesday, July 13, 2016 12:03 - CONCLUSION: 1. Abnormal sigmoid colon characteristic of mild acute diverticulitis in the mid sigmoid colon region. There is an area of extraluminal air and soft tissue extending superiorly from the mid sigmoid colon which represents either a large diverticulum, contained perforation, or possibly developing a fistula. No abscess or free air is present. 2. Innumerable cystic lesions are present throughout the liver with the largest cluster at the dome measuring up to 11 cm. Given the number of hepatic lesions present this presumably represents some variant of polycystic liver disease. Given the appearance of the lesion at the dome consider followup imaging to confirm stability or correlate with prior imaging studies. Jaison Plaza MD Objective Remarks GENERAL: This is a well-nourished, well-developed patient, in no apparent distress. CARDIOVASCULAR: Regular rate and regular rhythm without murmurs, gallops, or rubs. RESPIRATORY: Clear to auscultation. Breath sounds equal bilaterally. No wheezes , rales, or rhonchi. GASTROINTESTINAL: Abdomen soft, non-tender, nondistended. Normal, active bowel sounds MUSCULOSKELETAL: Extremities without clubbing, cyanosis, or edema. NEURO: Alert & Oriented x4 to person, place, time, situation. Moves all ext x4 Procedures none Medications and IVs Current Medications Ondansetron HCl 4 mg 4 mg ONCE ONCE IVP Last administered on 07/13/16 11:07; Start 07/13/16 at 11:00; Stop 07/13/16 at 11:01; Status DC Sodium Chloride (NS 1000 ml Inj) 1,000 ml @ 1,000 mls/hr Q1H IV Last administered on 07/13/16 11:07; Start 07/13/16 at 10:48; Stop 07/13/16 at 11:47 ; Status DC Iohexol 95 ml 95 ml STK-MED ONCE IV Last administered on 07/13/16 12:12; Start 07/13/16 at 12:12; Stop 07/13/16 at 12:13; Status DC Levofloxacin/ Dextrose 150 ml @ 100 mls/hr ONCE ONCE IV Last administered on 07/13/16 13:06; Start 07/13/16 at 13:00; Stop 07/13/16 at 14:29; Status DC Metronidazole 100 ml @ 100 mls/hr ONCE ONCE IV Last administered on 14:58; Start 07/13/16 at 13:00; Stop 07/13/16 at 13:59; Status DC Sodium Chloride (NS 1000 ml Inj) 1,000 ml @ 125 mls/hr Q8H IV Last administered on 07/15/16 02:04; Start 07/13/16 at 13:00; Stop 07/16/16 at 07:05 ; Status DC Pantoprazole Sodium 40 mg 40 mg ONCE ONCE IV PUSH Last administered on 13:04; Start 07/13/16 at 13:00; Stop 07/13/16 at 13:01; Status DC Sodium Chloride (NS 1000 ml Inj) 1,000 ml @ 100 mls/hr Q10H IV Last administered on 07/15/16 20:26; Start 07/13/16 at 13:30 Ondansetron HCl (Zofran Inj) 4 mg Q8H PRN IV PUSH NAUSEA Last administered on 07:45; Start 07/13/16 at 13:30 Acetaminophen/ Hydrocodone Bitart 1 tab 1 tab Q4H PRN PO PAIN > 4 Last administered on 07/14/16 03:29; Start 07/13/16 at 13:30 Levofloxacin/ Dextrose 100 ml @ 100 mls/hr Q24H IV Last administered on 14:32; Start 07/14/16 at 13:00; Stop 07/15/16 at 09:19; Status DC Metronidazole (Flagyl 500 Mg Inj) 100 ml @ 100 mls/hr Q8H IV Last administered on 07/16/16 05:30; Start 07/13/16 at 22:00; Stop 07/16/16 at 07:05 ; Status DC Acetaminophen (Tylenol) 650 mg Q4H PRN PO FEVER/ PAIN < 4 Last administered on 07/15/16 20:26; Start 07/13/16 at 13:30 Trazodone HCl (Desyrel) 100 mg HS PO Last administered on 07/15/16 20:26; Start 07/13/16 at 21:00 Pneumococcal Polyvalent Vaccine (Pneumovax-23 Inj) 25 mcg ONCE ONCE IM Last administered on 07/14/16 14:48; Start 07/14/16 at 10:00; Stop 07/14/16 at 10:01 ; Status DC Influenza Virus Vaccine (Flu (Quadrivalent) Vaccine Inj) 0.5 ml ONCE ONCE IM Last administered on 07/14/16 14:38; Start 07/14/16 at 10:00; Stop 07/14/16 at 10:01; Status DC Acetaminophen 650 mg 650 mg Q4H PRN PO headache ; Start 07/14/16 at 10:15 Ceftriaxone Sodium/Sodium Chloride (Rocephin Inj/NS Inj) 100 ml @ 200 mls/hr Q24H IV Last administered on 07/15/16 12:51; Start 07/15/16 at 11:00; Stop at 07:05; Status DC Potassium Chloride (KCl) 20 meq ONCE ONCE PO Last administered on 07/15/16t 12 :51; Start 07/15/16 at 09:30; Stop 07/15/16 at 10:20; Status DC Ciprofloxacin (Cipro) 500 mg Q12HR PO Last administered on 07/16/16t 07:45; Start 07/16/16 at 09:00 Metronidazole (Flagyl) 500 mg Q8HR PO ; Start 07/16/16 at 14:00 A/P Assessment and Plan - recurrent diverticulitis CT of the abdomen with possible small perforation vs developing fistula. tolerated the diet. will switch to po abx- cleared for discharge per general surgery. -UTI with e-coli; continue antibiotic -mild hypokalemia;replaced. -liver cysts- f/u as outpatient- patient is already aware. -DVT prophylaxis with SCD's Discharge Planning dc home today. f/u; pcp and surgery. see med list. d/w the general surgery and the patient. time spent 31 min. Gem Carver MD Jul 16, 2016 11:34
--- NOTE | 2016-07-16 11:35 | HHI.DS ---
Discharge Summary Admission Date Jul 13, 2016 at 13:34 Discharge Date: Jul 16, 2016 Admitting Diagnosis acute diverticulitis. (1) Acute diverticulitis ICD Code: K57.92 Diagnosis: Principal Procedures none Brief History - From Admission patient is a 60 y/o female with history of diverticulitis presented to ER with abdominal pain. she says that she was recently discharged from the hospital after she was treated for acute diverticulitis. she finished her antibiotics about ten days ago. she says that she was doing fine till a few days ago when she started to have diarrhea. she's also complaining of hematuria. she denies any fever or chills but has mild lower abdominal pain. she was seen at urgent care and then she was referred to ER. she says that she had a colonoscopy about a year ago which showed diverticulosis. she denies any dysuria or frequency. CBC/BMP: 07/15/16 0725 07/15/16 0725 Significant Findings Laboratory Tests Test 07/13/16 07/15/16 12:05 07:25 Urine Turbidity HAZY (CLEAR) Urine Protein 30 mg/dL (NEG-TRACE) Urine Leukocyte Esterase MOD (NEG) Urine RBC 10 /hpf (0-3) Urine WBC 50 /hpf (0-5) Urine Calcium Oxalate Crystals RARE /hpf (NONE) Urine Mucus MOD /lpf (OCC) Red Blood Count 3.64 MIL/MM3 (4.00-5.30) Hemoglobin 10.0 GM/DL (11.6-15.3) Hematocrit 31.2 % (35.0-46.0) Monocytes (%) (Auto) 14.9 % (0.0-8.0) Potassium Level 3.4 MEQ/L (3.5-5.1) Chloride Level 109 MEQ/L (98-107) Blood Urea Nitrogen 3 MG/DL (7-18) Creatinine 0.46 MG/DL (0.50-1.00) Calcium Level 8.1 MG/DL (8.5-10.1) Imaging Last Impressions Abdomen/Pelvis CT 07/13/16 1048 Signed Impressions: Service Date/Time: Wednesday, July 13, 2016 12:03 - CONCLUSION: 1. Abnormal sigmoid colon characteristic of mild acute diverticulitis in the mid sigmoid colon region. There is an area of extraluminal air and soft tissue extending superiorly from the mid sigmoid colon which represents either a large diverticulum, contained perforation, or possibly developing a fistula. No abscess or free air is present. 2. Innumerable cystic lesions are present throughout the liver with the largest cluster at the dome measuring up to 11 cm. Given the number of hepatic lesions present this presumably represents some variant of polycystic liver disease. Given the appearance of the lesion at the dome consider followup imaging to confirm stability or correlate with prior imaging studies. Jaison Plaza MD PE at Discharge GENERAL: This is a well-nourished, well-developed patient, in no apparent distress. CARDIOVASCULAR: Regular rate and regular rhythm without murmurs, gallops, or rubs. RESPIRATORY: Clear to auscultation. Breath sounds equal bilaterally. No wheezes , rales, or rhonchi. GASTROINTESTINAL: Abdomen soft, non-tender, nondistended. Normal, active bowel sounds MUSCULOSKELETAL: Extremities without clubbing, cyanosis, or edema. NEURO: Alert & Oriented x4 to person, place, time, situation. Moves all ext x4 Hospital Course - recurrent diverticulitis CT of the abdomen with possible small perforation vs developing fistula. tolerated the diet. will switch to po abx- cleared for discharge per general surgery. -UTI with e-coli; continue antibiotic -mild hypokalemia;replaced. -liver cysts- f/u as outpatient- patient is aware. -DVT prophylaxis with SCD's Pt Condition on Discharge: Good Discharge Disposition: Discharge Home Discharge Time: > 30 minutes Discharge Instructions DIET: Follow Instructions for: Low Residue Diet Activities you can perform: Regular-No Restrictions Follow up Referrals: PCP Follow-up Surgical with Guanako Peacock MD No follow up needed; just provide patient with office number [phone] New Medications: Amoxicillin-Clavulanate (Augmentin) 875-125 mg Tab 875 MG PO BID not for use in CrCl <30 ml/min. Infection Days 7 Ref 0 TAB Ondansetron (Zofran) 4 Mg Tab 4 MG PO Q8HR PRN NAUSEA OR VOMITING #20 Ref 0 TAB Continued Medications: Trazodone (Trazodone) 100 Mg Tab 100 MG PO HS Control Depression #30 Ref 0 TAB Gem Carver MD Jul 16, 2016 11:35
[2016-07-16] MEDS ORDERED: metroNIDAZOLE 500 MG TAB PO SCH (14:00)
== END 2016-07-16 12:17 | disposition home or self-care (01) | DRG 392 ==
LOC: NEPD 10:31 → NEDA 13:34 → N05A 16:01
PROVIDERS: ADMIT Internal Medicine; ATTEND Internal Medicine
DX: K57.32 Diverticulitis of large intestine without perforation or abscess without bleeding (principal); N39.0 Urinary tract infection, site not specified; Q44.6 Cystic disease of liver; E87.6 Hypokalemia; R31.9 Hematuria, unspecified; Z88.5 Allergy status to narcotic agent; R51 Headache; B96.20 Unspecified Escherichia coli [E. coli] as the cause of diseases classified elsewhere; Z23 Encounter for immunization
CPT/HCPCS: 74177; 80048; 80053; 81001; 83690; 85025; 85610; 85730; 87077; 87086; 87186; 90686; 90732; 96361; 96365; 96375; C9113; J0696; J1956; J2405; J7030; Q2038; Q9967